=== PATIENT | female | born 1980 | race Caucasian/White ===

== ENCOUNTER 2018-11-05 18:16 | Inpatient (IN) ==
[2018-11-05] MEDS ORDERED: METHOCARBAMOL 500 MG TABLET PO PRN (23:49)
[2018-11-05] MEDS ORDERED: DICYCLOMINE 10 MG CAPSULE PO PRN (23:49)
[2018-11-05] MEDS ORDERED: cloNIDine 0.1 MG TABLET PO PRN (23:49)
[2018-11-05] MEDS ORDERED: NICOTINE 21 MG/24 HR PATCH TRANSDERM PRN (23:49)
[2018-11-05] MEDS ORDERED: HydrOXYzine PAMOATE 25 MG CAPSULE PO PRN (23:49)
[2018-11-05] MEDS ORDERED: rOPINIRole 1 MG TABLET PO PRN (23:49)
[2018-11-06] MEDS: chlordiazePOXIDE 25 MG CAPSULE PO SCH ×5 (00:11→23:37)
[2018-11-06] MEDS: SODIUM CHLORIDE 0.9% 1,000 ML IV SCH ×2 (00:18→11:22)
[2018-11-06 01:20] LABS: INR 1.1; PT Patient Result 12.3 SECS
[2018-11-06 05:09] LABS: Basophils % 0.3 % (0.0-0.8); Eosinophils # 0.1 10*3/uL (0.0-0.87); Eosinophils % 1.8 % (0.00-10.9); Hematocrit 32.9 VOL% (35.7-47.0); Hemoglobin 10.6 GM/DL (12.0-16.0); Immature Granulocytes % 0.3 %; Immature Granulocytes Absolute 0.02 #; Lymphocytes # 1.5 10*3/uL (1.4-4.0); Mean Corpuscular HGB Conc 32.2 GM/DL (32-36); Mean Corpuscular Volume 94.5 FL (87-102); Mean Platelet Volume 10.5 FL (9.6-12.0); Monocytes % 8.4 % (1.7-12.7); Neutrophils % 65.2 % (38.7-73.9); Platelet Count 140 T/CUMM (130-400); Red Blood Count 3.48 MC/CUMM (3.8-5.5); Red Cell Distribution Width 13.2 % (9.3-17.3); White Blood Count 6.1 T/CUMM (4-12)
[2018-11-06 05:15] LABS: INR 1.2; PT Patient Result 12.5 SECS
[2018-11-06 05:43] LABS: Albumin 2.9 G/DL (3.4-5.0); Bilirubin,Total 0.5 MG/DL (0.2-1.0); Calcium 8.6 MG/DL (8.5-10.1); Risk Ratio 4.04; Total Protein 6.7 G/DL (6.4-8.3); VLDL CHOLESTEROL 27.2 MG/DL
[2018-11-06 08:05] LABS: Apearance,Urine Slightly Hazy (Clear); Bacteria,Urine Few /HPF (Few); Bilirubin,Urine Negative (Negative); Blood, Urine Moderate mg/dL (Negative); Glucose,Urine (UA) Negative (Negative); Ketones,Urine Negative (Negative); Mucus,Urine Few /LPF (Occasional); Nitrite,Urine Negative (Negative); Protein,Urine Negative; RBC,Urine 6 /HPF (0-4); Squamous Epithelial Cell,Urine Occasional /HPF (0-10); Urine Color Yellow (Yellow); Urine Specific Gravity 1.017 (1.001-1.035); Urine Urobilinogen < 2.0 EU/DL (0.2-1.0); WBC,Urine 24 /HPF (0-6)
[2018-11-06] MEDS: PANTOPRAZOLE 40 MG TABLET PO SCH (11:12)
[2018-11-06] MEDS: GABAPENTIN 600 MG TABLET PO SCH ×2 (11:13→20:09)
[2018-11-06] MEDS: ASPIRIN 325 MG TABLET PO SCH (11:13)
[2018-11-06] MEDS: HEPARIN DRIP 25,000 UNITS/500 ML PREMIX IV SCH (16:32)
[2018-11-06] MEDS: cefTRIAXone 1,000 MG in SYRINGE 1 EACH IV SCH (16:37)
[2018-11-06] MEDS: WARFARIN 5 MG TABLET PO SCH (19:03)
[2018-11-06] MEDS: HEPARIN 5,000 UNIT/1 ML VIAL IV PRN (21:52)
[2018-11-06] MEDS ORDERED: chlordiazePOXIDE 25 MG CAPSULE PO PRN (22:37)
[2018-11-07] MEDS: SODIUM CHLORIDE 0.9% 1,000 ML IV SCH ×2 (03:40→17:20)
[2018-11-07 04:29] LABS: INR 1.1; PT Patient Result 11.4 SECS; Partial Thromboplastin Time 29.5 SECS (0-40)
[2018-11-07] MEDS: HEPARIN 5,000 UNIT/1 ML VIAL IV PRN (05:06)
[2018-11-07] MEDS: GABAPENTIN 600 MG TABLET PO SCH (12:33)
[2018-11-07] MEDS: chlordiazePOXIDE 25 MG CAPSULE PO SCH ×2 (12:34→17:20)
[2018-11-07] MEDS: ASPIRIN 325 MG TABLET PO SCH (12:34)
[2018-11-07] MEDS: PANTOPRAZOLE 40 MG TABLET PO SCH (12:34)
[2018-11-07] MEDS: HEPARIN DRIP 25,000 UNITS/500 ML PREMIX IV SCH (12:35)
[2018-11-07 16:59] VITALS: BP 113/72
[2018-11-07] MEDS: cefTRIAXone 1,000 MG in SYRINGE 1 EACH IV SCH (17:19)
[2018-11-07] MEDS: WARFARIN 5 MG TABLET PO SCH (17:21)
== END 2018-11-07 17:55 | disposition left against medical advice (07) | DRG 770 ==
LOC: N.4E → OBSVTOIN 18:41
PROVIDERS: ADMIT Internal Medicine; ATTEND Internal Medicine